=== PATIENT | female | born 1975 | race Caucasian/White ===

== ENCOUNTER → 2020-04-29 15:23 | Outpatient (CLI) | payer BC, OTHER, SELFPAY ==
--- NOTE | ~2020-04-29 | MM_ITS ---
EXAMINATION: MM screening [facility] BI w macey HISTORY: Screening mammogram TECHNIQUE: Craniocaudal and mediolateral oblique 3-D tomosynthesis images were obtained and synthetic 2-D images were generated. CAD analysis was submitted and interpreted. COMPARISON: 04/25/2019, 04/22/2018, 04/20/2017 BREAST PARENCHYMAL COMPOSITION: The breasts are heterogeneously dense, which may obscure small masses . FINDINGS: There is no evidence of suspicious mass, calcification, or architectural distortion to sugg est malignancy in either breast. There has been no suspicious interval change. IMPRESSION: 1. No mammographic evidence of malignancy. 2. Recommend routine screening mammography in one year. BI-RADS Category 1: Negative Reviewed, dictated and finalized at location A.
== END ==
PROVIDERS: Visit Provider Obstetrics & Gynecology
DX: Z12.31 Encounter for screening mammogram for malignant neoplasm of breast (principal)
CPT/HCPCS: 77063; 77067

== ENCOUNTER 2020-11-20 23:29 | Emergency (ER) | payer BC, OTHER, SELFPAY ==
--- NOTE | ~2020-11-20 | CT_ITS ---
EXAMINATION: CT abdomen pelvis w con DATE: 11/21/2020 00:44 INDICATION: Right lower quadrant abdominal pain. TECHNIQUE: Computed tomography (CT) of the abdomen and pelvis was performed with 100 mL Omnipaque 350 intravenous contrast. Automated exposure control and iterative reconstruction technique were employe d. The dose-length product was 875.18 mGy-cm. COMPARISON: None. FINDINGS: The visualized portions of the lung bases demonstrate mild atelectasis. No pleural effusion . The heart size is normal. No pericardial effusion. There is a 5 mm cyst in the liver. The gallbladd er, spleen, pancreas, adrenal glands, and kidneys are normal. There are no dilated loops of bowel. Th e appendix is normal. There is an umbilical hernia containing fat. There are no pathologically enlarg ed lymph nodes. There is no free intraperitoneal fluid. There is dextroscoliosis and mild spondylosis of thoracolumbar spine. IMPRESSION: 1. Umbilical hernia containing fat. Reviewed, dictated and finalized at location A.
[2020-11-20 23:45] VITALS: BP 152/79; PULSE 75; RESP 18; TEMP 37.1; O2SAT 100
[2020-11-21 00:14] LABS: Basophils Percent Auto 0.3 % (0.2-1.2); Eosinophils Absolute Auto 0.1 K/mm3 (0-0.3); Eosinophils Percent Auto 0.8 % (0-4.4); Hematocrit 42.6 % (37.0-47.0); Hemoglobin 13.4 g/dL (12.0-15.0); Immature Granulocyte Absolute 0.05 K/mm3 (0.00-0.031); Immature Granulocyte Percent A 0.6 % (0-0.5); Lymphocytes Absolute Auto 2.46 K/mm3 (0.9-3.2); Lymphocytes Percent Auto 27.3 % (18.3-44.2); Mean Corpuscular HGB Conc 31.5 g/dl (32-36); Mean Corpuscular Hemoglobin 28.8 pg (26-34); Mean Corpuscular Volume 91.4 fl (80-100); Mean Platelet Volume 10.8 fl (7.4-10.4); Monocytes Absolute Auto 0.7 K/mm3 (0.1-0.6); Monocytes Percent Auto 7.9 % (2.6-8.5); Neutrophils Absolute Auto 5.7 K/mm3 (1.3-6.7); Neutrophils Percent Auto 63.1 % (45.5-73.1); Platelet Count Result 228 k/mm3 (150-375); Red Blood Count 4.66 M/mm3 (4.2-5.4); Red Cell Distribution Width 12.7 % (11.5-14.5)
[2020-11-21] MEDS: SODIUM CHLORIDE 0.9% IV 1,000 ML 999 ML IV CONT (00:18)
[2020-11-21] MEDS: ONDANSETRON INJ 4 MG/2 ML VIAL IV PUSH (00:20)
[2020-11-21 00:28] LABS: Alanine Aminotransferase 12 U/L (4-35); Albumin Level 4.5 g/dL (3.5-5.1); Alkaline Phosphatase 61 U/L (38-126); Anion Gap 6 mmol/L (8-16); Aspartate Amino Transferase 18 U/L (14-36); Bilirubin,Total 0.1 mg/dL (0.2-1.3); Blood Urea Nitrogen 18 mg/dL (7-17); Calcium 8.9 mg/dL (8.4-10.2); Carbon Dioxide 27 mmol/L (22-30); Chloride 105 mmol/L (98-107); Estimated CRCL calculation 59 ml/min; Estimated Glomerular Filt Rate 53; Glucose 107 mg/dL (65-105); Lipase 66 U/L (23-300); Sodium 138 mmol/L (137-145)
--- NOTE | 2020-11-21 00:34 | ED.ABDPAIN ---
HPI - Abdominal Pain General Chief Complaint: Abdominal Pain Stated Complaint: low abd pain Time Seen by Provider: 11/20/20 23:45 Source: patient Mode of arrival: ambulatory Limitations: no limitations History of Present Illness HPI narrative: Patient is a four 5-year-old female complaining of right lower quadrant pain, 6 out of 10, sharp, nonradiating accompanied by nausea started tonight. Patient denies any chest pain, shortness of breath, vomiting, diarrhea, fever, chills or urinary symptoms. Related Data Home Medications Medication Instructions Recorded Confirmed oxcarbazepine 300 mg tablet 300 mg PO BID 10/20/19 Allergies Allergy/AdvReac Type Severity Reaction Status Date / Time propoxyphene Allergy Mild Anxiety Verified 10/20/19 11:47 carbamazepine Allergy Unknown Unknown Verified 10/20/19 11:47 topiramate Allergy Unknown Hives Verified 10/20/19 11:47 Review of Systems Review of Systems: All systems reviewed & are unremarkable except as noted in HPI and below Constitutional: Constitutional: Denies body ache(s), Denies chills, Denies excessive sweating, Denies fatigue, Denies fever(s), Denies headache(s), Denies lethargy, Denies malaise, Denies weakness and Denies weight loss Eyes: Eyes: Denies blurry vision, Denies change in vision and Denies loss of vision ENT: Denies dizziness, Denies ear discharge, Denies headache(s), Denies lip swelling, Denies epistaxis, Denies nasal congestion, Denies neck pain, Denies throat swelling and Denies tongue swelling Cardiovascular: Cardiovascular: Denies chest pain, Denies chest pain at rest, Denies chest pain with activity, Denies diaphoresis, Denies rapid heart rate, Denies edema, Denies irregular heart rhythm, Denies lightheadedness, Denies palpitations, Denies dyspnea and Denies dyspnea on exertion Respiratory: Respiratory: Denies chest congestion, Denies cough, Denies hemoptysis, Denies dyspnea and Denies dyspnea on exertion Gastrointestinal: Gastrointestinal: Denies melena, Denies hematochezia, Denies diarrhea, Denies vomiting and Denies hematemesis Musculoskeletal: Musculoskeletal: Denies abnormal gait, Denies deformity, Denies joint swelling, Denies limited range of motion, Denies neck pain and Denies numbness Neurologic: Denies Abnormal speech present, Denies abnormal gait, Denies confusion, Denies dizziness, Denies headache(s), Denies focal weakness, Denies loss of vision, Denies numbness, Denies Other visual disturbances, Denies Sensory deficit (Neuro) and Denies weakness Psychiatric: Psychiatric: Denies confusion, Denies depression, Denies auditory hallucinations, Denies homicidal ideation and Denies suicidal ideation Endocrine: Endocrine: Denies cold intolerance, Denies excessive sweating, Denies fatigue, Denies heat intolerance and Denies palpitations Hematologic/Lymphatic: Hematologic/Lymphatic: Denies easy bleeding and Denies easy bruising Allergic/Immunologic: Allergic/Immunologic: Denies lip swelling, Denies throat swelling and Denies tongue swelling PMFSH Past Medical History Medical History (Updated 11/21/20 @ 01:[address] MD) Brain tumor History of seizure Surgical History Surgical History (Updated 04/19/20 @ 07:39 by Chantel Rod [facility]) H/O brain surgery removal of brain tumor History of partial hysterectomy Family History Family History (Updated 04/19/20 @ 07:40 by Chantel Rod [facility]) Sibling Patient's brother is Mother Heart disease Hypertension Father Diabetes mellitus Grandparent Alzheimer disease Social History Social History (Updated 04/19/20 @ 07:40 by Chantel Rod [facility]) Smoking status: Never smoker Second hand tobacco smoke exposure: No Alcohol intake: current Exam Const: General: cooperative, healthy appearing, comfortable, no acute distress, well developed, alert and awake; No confusion Orientation/consciousness: oriented to person, oriented to place, oriented to
[2020-11-21 01:00] VITALS: BP 131/74; PULSE 64; RESP 16; O2SAT 98
[2020-11-21] MEDS: KETOROLAC 30 MG/ML VIAL (*BKC) IV PUSH (01:33)
[2020-11-21 01:55] LABS: Add Urine Microscopic? NO; Appearance Urine Clear (Clear); Bilirubin Urine Negative (Negative); Blood Urine Negative (Negative); Color Urine Yellow (Yellow); Glucose Urine UA Negative (Negative); Ketones Urine Negative (Negative); Leukocyte Esterase Ur Negative LEU/UL (Negative); Nitrate Urine Negative (Negative); Protein Urine Negative (Negative); Urobilinogen Urine Negative mg/dL (<2.0)
[2020-11-21 01:58] LABS: Specific Grav Ur 1.047 (1.001-1.035)
[2020-11-21 02:00] VITALS: BP 116/60; PULSE 64; RESP 16; O2SAT 97
== END 2020-11-21 02:30 | disposition home or self-care (01) ==
PROVIDERS: Emergency Provider Emergency Medicine; PCP Internal Medicine
DX: R10.31 Right lower quadrant pain (principal); G40.909 Epilepsy, unspecified, not intractable, without status epilepticus
CPT/HCPCS: 36415; 74177; 80053; 81003; 83690; 85025; 96361; 96374; 96375; 99284; J1885; J2405; J7030; Q9967

== ENCOUNTER → 2021-05-08 14:34 | Outpatient (CLI) | payer BC, OTHER, SELFPAY ==
--- NOTE | ~2021-05-08 | MM_ITS ---
EXAMINATION: MM screening [facility] BI w macey HISTORY: Screening TECHNIQUE: Craniocaudal and mediolateral oblique 3-D tomosynthesis images were obtained and synthetic 2-D images were generated. CAD analysis was submitted and interpreted. COMPARISON: No prior mammogram is available for comparison at this institution. BREAST PARENCHYMAL COMPOSITION: The breasts are heterogeneously dense, which may obscure small masses . FINDINGS: There are developing bilateral breast asymmetries in the lateral aspect of both breasts on CC views. There are no suspicious calcifications. No discrete mass. IMPRESSION: 1. Developing bilateral breast asymmetries. 2. Additional mammographic views and possible breast ultrasound are recommended. BI-RADS Category 0: Incomplete: Needs additional imaging evaluation. Reviewed, dictated and finalized at location A. IMPRESSION: 1. Developing bilateral breast asymmetries. 2. Additional mammographic views and possible breast ultrasound are recommended . BI-RADS Category 0: Incomplete: Needs additional imaging evaluation.
== END ==
PROVIDERS: PCP Internal Medicine; Visit Provider Student in an Organized Health Care Education/Training Program
DX: Z12.31 Encounter for screening mammogram for malignant neoplasm of breast (principal); R92.8 Other abnormal and inconclusive findings on diagnostic imaging of breast
CPT/HCPCS: 77063; 77067

== ENCOUNTER → 2021-06-05 08:36 | Outpatient (CLI) | payer BC, OTHER, SELFPAY ==
--- NOTE | ~2021-06-05 | MMUS_ITS ---
EXAMINATION: MM diagnostic [facility] BI w macey, US breast BI complete HISTORY: Developing bilateral breast asymmetries reported on 05/08/2021 screening mammogram TECHNIQUE: Additional 3-D tomosynthesis images of both breasts were performed and synthetic 2-D image s were generated. CAD analysis was submitted and interpreted. High resolution bilateral complete [facility] ultrasound including all 4 quadrants and subareolar areas was performed. COMPARISON: 05/08/2021 bilateral screening mammogram FINDINGS: MAMMOGRAPHIC FINDINGS: No suspicious reproducible mass no architectural distortion is evident. Heterogeneously dense stroma of both breasts may obscure masses. Bilateral complete breast ultrasound examination was performed. ULTRASOUND: No suspicious solid lesion or shadowing of either breast is detected. Right breast: 1:00 6 cm from nipple: 3.6 x 3.2 x 4.9 mm circumscribed parallel sonolucency consistent with cyst 2:00 3 cm from nipple: 3.1 x 3.6 x 3.7 mm sonolucency, consistent with small cyst 9:00 4 cm from nipple: Parallel circumscribed 4.6 x 2.2 x 2.7 mm sonolucency, likely a small cyst 11:00 2 cm from nipple: Parallel circumscribed hypoechoic 4.5 x 1.7 x 3.8 mm lesion without internal vascularity or posterior shadowing, likely benign Left breast: 4:00 1 cm from nipple: Parallel circumscribed 1.9 x 4.9 x 4.7 mm sonolucency, likely a small cyst IMPRESSION: 1. No mammographic evidence of malignancy 2. Routine mammographic screening is recommended BI-RADS Category 2: Benign finding(s). Reviewed, dictated and finalized at location A. TRIMMER IMPRESSION: 1. No mammographic evidence of malignancy 2. Routine mammographic screening is recommended BI-RADS Category 2: Benign finding(s).
== END ==
PROVIDERS: PCP Internal Medicine; Visit Provider Obstetrics & Gynecology
DX: R92.8 Other abnormal and inconclusive findings on diagnostic imaging of breast (principal)
CPT/HCPCS: 76641; 77062; 77066; G0279

== ENCOUNTER 2021-06-13 01:10 | Day surgery (SDC) | payer BC, OTHER, SELFPAY ==
[2021-06-05 14:38] VITALS: BMI 30.6
[2021-06-13 06:24] VITALS: BMI 30.4
[2021-06-13] MEDS: LACTATED RINGERS 1,000 ML 150 ML IV CONT (06:36)
[2021-06-13] MEDS: SIMETHICONE ORAL SUSPENSION 20 MG/0.3 ML 30 ML BOTTLE 0.6 ML IRRIGATION (07:35)
[2021-06-13 07:42] VITALS: BP 110/69; PULSE 77; RESP 17; O2SAT 100
--- NOTE | 2021-06-13 07:42 | WPDGICN ---
Assessment and Plan Assessment and plan (1) Screening for colon cancer: Code(s): Z12.11 - Encounter for screening for malignant neoplasm of colon Status: Acute Assessment and Plan: Patient presents for neoplasia screening. Appears to be at average risk for colon polyp. Further recommendations will be given after endoscopy. (2) History of seizure: Code(s): Z87.898 - Personal history of other specified conditions Status: Acute Assessment and Plan: Patient has a history of seizure after previous brain surgery for a tumor. Currently well controlled and stable. GI Consult Note Consult date/time: 06/13/21 07:42 HPI: Naty Hodges is a 45 year old female Presents for screening colonoscopy. She reports that her current weight appetite and bowel movements are normal. Patient denies abdominal pain. She has had no bleeding. Family history is noncontributory. Past medical history significant for brain surgery for brain tumor and has had a seizure in the past. Review of Systems Review of Systems: All systems reviewed & are unremarkable except as noted in HPI and below PMFSH Past Medical History Medical History (Updated 04/21/21 @ 16:28 by NAVIN Hayes) Brain tumor History of seizure Surgical History Surgical History H/O brain surgery removal of brain tumor History of partial hysterectomy Family History Family History Sibling Patient's brother is Mother Heart disease Hypertension Father Diabetes mellitus Grandparent Alzheimer disease Social History Social History Smoking status: Never smoker Second hand tobacco smoke exposure: No Alcohol intake: current Alcohol use details: rarely Substance use: never Substance use type: does not use Living arrangements: with family Meds Home Medications and Allergies Home Medications Medication Instructions Recorded Confirmed Type oxcarbazepine 300 mg tablet 300 mg PO BID 10/20/19 06/05/21 History cholecalciferol (vitamin D3) 1,250 1,250 mcg PO WEEKLY #8 cap 01/23/21 06/05/21 Rx mcg (50,000 unit) capsule Adults Multivitamin 2 tab-cap PO DAILY 06/05/21 06/05/21 History cyanocobalamin (vitamin B-12) 1,000 mcg PO DAILY 06/05/21 06/05/21 History [Vitamin B-12] Allergies Allergy/AdvReac Type Severity Reaction Status Date / Time propoxyphene Allergy Mild Anxiety Verified 06/13/21 06:22 carbamazepine Allergy Unknown Unknown Verified 06/13/21 06:22 topiramate Allergy Unknown Hives Verified 06/13/21 06:22 Exam Narrative: Physical exam reveals patient be alert. Vital signs stable. HEENT exam is unremarkable. Patient is anicteric. Lungs are clear to auscultation and percussion. Heart is without murmur or extra sounds. Abdominal exam bowel sounds are present soft nontender with no organomegaly. Digital external rectal exam is normal.
[2021-06-13 07:52] VITALS: BP 110/69; PULSE 60; RESP 15; O2SAT 100
[2021-06-13 08:02] VITALS: BP 130/75; PULSE 58; RESP 16; O2SAT 100
== END 2021-06-13 08:15 | disposition home or self-care (01) ==
PROVIDERS: PCP Internal Medicine; Visit Provider Internal Medicine Gastroenterology
PROC: 0DJD8ZZ Inspection of Lower Intestinal Tract, Via Natural or Artificial Opening Endoscopic (ICD-10-PCS; CPT 45378; principal; 2021-06-13 07:30)
DX: Z12.11 Encounter for screening for malignant neoplasm of colon (principal); K63.5 Polyp of colon; Z87.898 Personal history of other specified conditions
CPT/HCPCS: 45385; 88305; J2704; J7120

== ENCOUNTER → 2022-07-11 09:50 | Outpatient (CLI) | payer BC, OTHER, SELFPAY ==
--- NOTE | ~2022-07-11 | US_ITS ---
US thyroid INDICATION: Follow-up thyroid nodule TECHNIQUE: Real-time sonographic images of the thyroid gland were obtained. COMPARISON: Ultrasound dated 04/10/2017 FINDINGS: The right thyroid lobe measures 4.7 x 1.2 x 1.7 cm. The left thyroid lobe measures 4.6 x 1 .4 x 1.4 cm. There is normal echotexture and echogenicity throughout the thyroid gland. There is a st able circumscribed oval hypoechoic mass which is solid, wider than tall, smoothly marginated with pun ctate echogenic foci, TR 5. Given the lack of interval change, this is likely benign. Normal vascular flow is present. IMPRESSION: 1. Stable likely benign left thyroid mass measuring up to 12 mm, TR 5. Recommend follow-up ultrasoun d in 12 months. Reviewed, dictated and finalized at location A. E FORMER IMPRESSION: 1. Stable likely benign left thyroid mass measuring up to 12 mm, TR 5. Recomme nd follow-up ultrasound in 12 months.
== END ==
PROVIDERS: PCP Internal Medicine; Visit Provider Clinical Nurse Specialist
DX: E04.1 Nontoxic single thyroid nodule (principal)
CPT/HCPCS: 76536

== ENCOUNTER 2022-08-05 18:33 | Emergency (ER) | payer BC, OTHER, SELFPAY ==
[2022-08-05 18:38] VITALS: BP 149/79; PULSE 73; RESP 16; TEMP 36; O2SAT 99
--- NOTE | 2022-08-05 18:44 | ED.SKABFB ---
HPI - Skin/Abscess/Foreign Bdy General Chief complaint: Skin/Abscess/Foreign Body Stated complaint: Rash Time Seen by Provider: 08/05/22 18:44 Source: patient Mode of arrival: ambulatory Limitations: no limitations History of Present Illness HPI narrative: 47 yo F presents with c/o painful rash to L forehead extending into scalp that started approx. 4 days ago. Getting progressively worse. Saw her eye doctor 3 days ago for L eye itching but did not mention rash. No pain to eye. Was told exam normal and to use pataday. No worsening or change to eye symptoms. All systems reviewed and negative except as noted above. Related Data Home Medications Medication Instructions Recorded Confirmed cyanocobalamin (vitamin B-12) 1,000 mcg PO DAILY 06/05/21 03/15/22 1,000 mcg tablet (Vitamin B-12) oxcarbazepine 300 mg tablet 450 mg PO BID 03/12/22 03/15/22 Allergies Allergy/AdvReac Type Severity Reaction Status Date / Time propoxyphene Allergy Mild Anxiety Verified 06/13/21 06:22 carbamazepine Allergy Unknown Unknown Verified 06/13/21 06:22 topiramate Allergy Unknown Hives Verified 06/13/21 06:22 Review of Systems Review of Systems: CONSTITUTIONAL: Denies fever, chills, or sweats. EYES: Denies visual changes, redness, or discharge. ENT: Denies rhinorrhea, congestion, sore throat, or otalgia. CARDIOVASCULAR: Denies chest pain, palpitations, or edema. RESPIRATORY: Denies cough or dyspnea. GASTROINTESTINAL: Denies abdominal pain, nausea, vomiting, or diarrhea. GENITOURINARY: Denies dysuria or hematuria. SKIN: reports painful rash to left forehead. MUSCULOSKELETAL: Denies back pain, joint pain, or myalgia. NEUROLOGIC: Denies headache, numbness, or weakness. PSYCHIATRIC: Denies anxiety or depression. All other systems reviewed are negative, except as documented in HPI. [facility] Past Medical History Medical History Brain tumor History of seizure Surgical History Surgical History H/O brain surgery removal of brain tumor History of partial hysterectomy Family History Family History Sibling Patient's brother is Mother Heart disease Hypertension Father Diabetes mellitus Grandparent Alzheimer disease Social History Social History Smoking status: Never smoker Second hand tobacco smoke exposure: No Alcohol intake: current Alcohol use details: rarely Substance use: never Substance use type: does not use Living arrangements: with family Comments At time of signature, agree with nursing past medical, surgical, social and family history. There is no relevant family history pertinent to the presenting complaint. Exam Narrative: GENERAL: This is a well-nourished, well-developed patient, in no apparent distress. HEAD: normocephalic, atraumatic. EYES: PERRL. Sclera clear/white. Vision is grossly intact. Topical anesthetic was instilled with good anesthesia using 1gtt of opth anesthetic agent (tetracaine). Fluorescein stain of the L eye was performed without uptake of dye. No epithelial defect was noted. NO FB, ulcer or dendritic lesions. Upper lid was everted and no FB or lesions were noted. Normal saline irrigation eye solution was performed and the patient tolerated the procedure well, no adverse reaction or complications. EARS: External ears normal NOSE: External nose normal NECK: Neck supple, non-tender without lymphadenopathy, masses or thyromegaly. CARDIOVASCULAR: Regular rate and rhythm without murmurs, gallops, or rubs. RESPIRATORY: Clear to auscultation. Breath sounds equal bilaterally. No wheezes, rales, or rhonchi. SKIN: warm, Dry, intact, good texture and turgor. erythematous vesicles with surrounding swelling to L side of forehead extending to L temporal area
== END 2022-08-05 19:05 | disposition home or self-care (01) ==
PROVIDERS: Emergency Provider Nurse Practitioner Family; PCP Internal Medicine
DX: B02.9 Zoster without complications (principal); G40.909 Epilepsy, unspecified, not intractable, without status epilepticus
CPT/HCPCS: 99213; A9270; G0463

== ENCOUNTER → 2022-08-22 07:41 | Outpatient (CLI) | payer BC, OTHER, SELFPAY ==
--- NOTE | ~2022-08-22 | MM_ITS ---
EXAMINATION: MM screening [facility] BI w macey HISTORY: Screening mammogram TECHNIQUE: Craniocaudal and mediolateral oblique 3-D tomosynthesis images were obtained and synthetic 2-D images were generated. CAD analysis was submitted and interpreted. COMPARISON: 06/2000 diagnostic bilateral mammogram and complete bilateral breast ultrasound exam ination BREAST PARENCHYMAL COMPOSITION: The breasts are heterogeneously dense, which may obscure small masses . FINDINGS: There is no evidence of suspicious mass, calcification, or architectural distortion to sugg est malignancy in either breast. There has been no suspicious interval change. IMPRESSION: 1. No mammographic evidence of malignancy. 2. Recommend routine screening mammography in one year. BI-RADS Category 1: Negative Reviewed, dictated and finalized at location A. ENT INTAKE COORDINATOR
== END ==
PROVIDERS: PCP Internal Medicine; Visit Provider Obstetrics & Gynecology
DX: Z12.31 Encounter for screening mammogram for malignant neoplasm of breast (principal)
CPT/HCPCS: 77063; 77067

== ENCOUNTER 2022-12-02 18:33 | Emergency (ER) | payer BC, OTHER, SELFPAY ==
--- NOTE | ~2022-12-02 | XR_ITS ---
EXAM: XR toe 1st LT min 2V DATE: 12/02/2022 18:59 HISTORY: DROPPED 10 POUND WEIGHT ON TOE . COMPARISON: None available. FINDINGS: Decreased mineralization. Subtle, minimally comminuted fracture of the distal left first p halanx. No lytic or blastic lesion. Joint spaces and physes are maintained. No erosion or periosteal change. Soft tissues within normal limits. IMPRESSION: Nondisplaced, minimally comminuted fracture of the distal left first phalanx. Reviewed, dictated and finalized at location K. IMPRESSION: Nondisplaced, minimally comminuted fracture of the distal left firs t phalanx.
[2022-12-02 18:49] VITALS: BP 148/71; PULSE 65; RESP 16; TEMP 36.6; O2SAT 99
--- NOTE | 2022-12-02 19:45 | ED.LOWEXIN ---
HPI - Extremity Injury (Lower) General Chief Complaint: Extremity Injury, Lower Stated Complaint: injury left toe Time Seen by Provider: 12/02/22 19:45 Source: patient Mode of arrival: ambulatory Limitations: no limitations History of Present Illness HPI Narrative: 47-year-old female presented for complaint of pain and swelling to the left great toe after dropping a 10 lb weight on the toe yesterday morning. States she is able to move the toes and has normal sensation. denies decreased range of motion, numbness, tingling, or weakness of the extremity. She denies damage to the toenail. Has not taken anything for pain. Related Data Home Medications Medication Instructions Recorded Confirmed cyanocobalamin (vitamin B-12) 1,000 mcg PO DAILY 06/05/21 03/15/22 1,000 mcg tablet (Vitamin B-12) oxcarbazepine 300 mg tablet 450 mg PO BID 03/12/22 03/15/22 Allergies Allergy/AdvReac Type Severity Reaction Status Date / Time propoxyphene Allergy Mild Anxiety Verified 12/02/22 18:55 carbamazepine Allergy Unknown Unknown Verified 12/02/22 18:55 topiramate Allergy Unknown Hives Verified 12/02/22 18:55 Review of Systems Review of Systems: CONSTITUTIONAL: Denies body aches, fever, chills EYES: Denies visual changes ENT: Denies rhinorrhea, congestion CARDIOVASCULAR: Denies chest pain, palpitations, or edema. RESPIRATORY: Denies cough or dyspnea. GASTROINTESTINAL: Denies abdominal pain, nausea, vomiting, or diarrhea. SKIN: Denies rash, itching, or wounds. MUSCULOSKELETAL: Per HPI NEUROLOGIC: Denies headache, numbness, tingling, or weakness. PSYCH: Denies depression or anxiety. All systems reviewed & are unremarkable except as noted in HPI and below PMFSH Past Medical History Medical History Brain tumor History of seizure Surgical History Surgical History H/O brain surgery removal of brain tumor History of partial hysterectomy Family History Family History Sibling Patient's brother is Mother Heart disease Hypertension Father Diabetes mellitus Grandparent Alzheimer disease Social History Social History Smoking status: Never smoker Second hand tobacco smoke exposure: No Alcohol intake: current Alcohol use details: rarely Substance use: never Substance use type: does not use Living arrangements: with family Comments At time of signature, I have reviewed and agree with nursing past medical, surgical, social and family history unless otherwise noted. Please see nursing chart for further information. There is no relevant family history pertinent to the presenting complaint Exam Narrative: GENERAL: Well-appearing, in no acute distress. CHEST: Speaks in full sentences. No respiratory distress. HEART: Regular rate and rhythm. Normal and equal peripheral pulses. EXTREMITIES: Left foot 1st toe with moderate bruising and swelling into the MTP joint, Tender to DIP. full range of motion and sensation intact. Left foot has normal strength and sensation, normal range of motion. No open wounds, skin tenting, or obvious deformity; alignment normal, pulse palpable and equal bilaterally, skin warm, dry, pink. Capillary refill less than 3 seconds. SKIN: Warm, dry NEURO: Alert and oriented x3. PSYCH: Normal mood and affect Course Course Emergency Course: Patient is aware of diagnosis, understands and agrees to treatment plan. Anticipatory guidance given. Patient agrees to follow-up as directed and is aware of reasons to seek care at the emergency department. Portions of this record may have been created with voice recognition software Level of Care: Express Care Visit Vital Signs Vital signs: Vital Signs Temperature 98 F 12/02/22 18:4
== END 2022-12-02 20:10 | disposition home or self-care (01) ==
PROVIDERS: Emergency Provider Nurse Practitioner Family; PCP Internal Medicine
DX: S92.425A Nondisplaced fracture of distal phalanx of left great toe, initial encounter for closed fracture (principal); W20.8XXA Other cause of strike by thrown, projected or falling object, initial encounter; G40.909 Epilepsy, unspecified, not intractable, without status epilepticus
CPT/HCPCS: 73660; 99214; G0463

== ENCOUNTER 2023-11-05 13:12 | Outpatient (CLI) | payer BC, OTHER, SELFPAY ==
--- NOTE | ~2023-11-05 | MMUS_ITS ---
EXAMINATION: MM diagnostic [facility] BI w macey, US breast BI complete HISTORY: Fibrocystic changes TECHNIQUE: ML, MLO and CC 3-D tomosynthesis images of both breasts were performed and synthetic 2-D i mages were generated. CAD analysis was submitted and interpreted. High resolution bilateral complete breast ultrasound examination including all 4 quadrants and subareolar area of each breast was perfor med. COMPARISON: August 22, 2022 bilateral screening mammogram June 05, 2021 diagnostic bilateral mammogram and bilateral complete breast ultrasound examination May 08, 2021 bilateral screening mammogram BREAST PARENCHYMAL COMPOSITION: The breasts are heterogeneously dense, which may obscure small masses . FINDINGS: MAMMOGRAPHIC FINDINGS: No suspicious mass or architectural distortion, malignant calcification, skin thickening or retractio n or significant new or developing density is detected. ULTRASOUND: Right breast: 1:00 5 cm from nipple: 3.7 x 5.4 mm sonolucency without internal vascularity, likely a small cyst 0136 hours from nipple: 2 x 3.2 x 4.8 mm probable cyst Left breast: 3:00 4 cm from nipple: 1.7 x 3.9 x 4.1 mm cyst 11:00 near nipple: Fibula 5 x 6.3 x 6.8 mm cyst IMPRESSION: 1. Benign findings 2. Routine annual mammographic screening is recommended BI-RADS Category 2: Benign finding(s). Reviewed, dictated and finalized at location A. IMPRESSION: 1. Benign findings 2. Routine annual mammographic screening is recommended BI-RADS Category 2: Benign finding(s).
== END 2023-11-05 13:13 | disposition home or self-care (01) ==
LOC: ANHIMG 13:14
PROVIDERS: PCP Internal Medicine; Visit Provider Obstetrics & Gynecology
DX: N60.19 Diffuse cystic mastopathy of unspecified breast (principal)
CPT/HCPCS: 76641; 77062; 77066; G0279

== ENCOUNTER 2024-08-25 00:15 | Day surgery (SDC) | payer BC, OTHER, SELFPAY ==
[2024-08-09 13:33] VITALS: BMI 35.2
--- OUTSIDE RECORDS SUMMARY | 2024-08-25 00:19 | XMS_ITS | Clinical Summary ---
Author Organization [facility] Address [address] [place] [address] Care Team Providers Care Cost Reduction Engineer Name Role Phone Cinthia Hernandez DO Primary Care Provider [phone]- [phone] Source Comments [facility],non-owned Affiliates and Associated Physician Practices is amultiple site organization consisting of ambulatory clinics and hospital sitesin [place], [place], [place] and [place]. This disclosure is being madepursuant to the Care Everywhere program and may not contain all information available regarding this patient. Last updated 18.[facility] Allergies Active Allergy Reactions Criticality Noted Date Comments Carbamazepine Rash Medium 11/11/2017 Propoxyphene N-Apap Other 02/16/2018 Panic attack Topiramate Dizziness Low 11/11/2017 Medications * Be aware that medications may not be up to date on this document. Alwaysverify current medications with the patient. Medication Sig Dispensed Refills Start Date End Date Status OXcarbazepine (TRILEPTAL) 300 MG tablet Take 300 mg by mouth 2 times daily Active clobetasol (TEMOVATE) 0.05 % ointmentIndications:Gra nuloma annulare Apply to feet and arms twice daily. 30 days supply. 60 g 3 02/16/2018 Active Active Problems Problem Noted Date Diagnosed Date Granuloma annulare 06/01/2018 Lentigines 06/01/2018 Other seborrheic keratosis 06/01/2018 Multiple benign melanocytic nevi of upper and lower extremities and trunk 06/01/2018 Family History Medical History Relation Name Comments Asthma Neg Hx CVA Neg Hx Cancer - Breast Neg Hx Cancer - Other Neg Hx Cancer - Skin, Melanoma Neg Hx Cancer - Skin, Non Melanoma Neg Hx Eczema Neg Hx Hemophilia Neg Hx Psoriasis Neg Hx Social History Tobacco Use Types Packs/Day Years Used Date Smoking Tobacco: Never Smokeless Tobacco: Never Alcohol Use Standard Drinks/Week Comments Yes 0 (1 standard drink = 0.6 oz pur e alcohol) rarely Sex and Gender Information Value Date Recorded Sex Assigned at Not on file Gender Identity Not on file Sexual Orientation Not on file Plan of Treatment Health Maintenance Due Date Last Done Comments COLOGUARD (AGES 45-75) - COL ON CA SCREENING 1974 COLON MONITORING 1974 COLONOSCOPY - COLON CA SCREENING 1974 CT COLONOGRAPHY - COLON CA SCREENING 1974 Colorectal Cancer Screening 1974 FIT - COLON CA SCREENING 1974 FLEX SIG - COLON CA SCREENING 1974 LIPID TESTING 1974 MAMMOGRAM 1974 PAP SMEAR 1974 HIV SCREENING 1989 HEPATITIS C SCREENING 07/13/1992 DTAP/TDAP/TD VACCINES (1 - Tdap) 1993 HEPATITIS B VACCINE (1 of 3 - 19+ 3-dose series) 1993 COVID-19 VACCINE ( - 2023-2 5 season) 2024 INFLUENZA VACCINE (#1) 2024 DEPRESSION SCREENING 07/05/2024 PNEUMOCOCCAL VACCINE 50+ (1 of 1 - PCV) 2024 ZOSTER VACCINE (1 of 2) 2024 HIB VACCINE Aged Out No longer eligi ble based on patient's age to complete this topic HPV VACCINE Aged Out No longer eligi ble based on patient's age to complete this topic MENINGOCOCCAL (Group B) VACCINE Aged Out No longer eligible based on patient's age to complete this topic MENINGOCOCCAL VACCINE Aged Out No annalise gaurav eligible based on patient's age to complete this topic PNEUMOCOCCAL VACCINE Aged Out No long er eligible based on patient's age to complete this topic Care Teams Cost Reduction Engineer Relationship Specialty Start Date End Date Cinthia Hernandez DO PCP - General 02/16/18
--- OUTSIDE RECORDS SUMMARY | 2024-08-25 00:19 | XMS_ITS | Referral Summary ---
Author Organization [facility] Address [address] [place] [address] Care Team Providers Care Platinum And Palladium Kettle Tender Name Role Phone Cinthia Hernandez DO Primary Care Provider [phone]- [phone] Source Comments [facility],non-owned Affiliates and Associated Physician Practices is amultiple site organization consisting of ambulatory clinics and hospital sitesin [place], [place], [place] and [place]. This disclosure is being madepursuant to the Care Everywhere program and may not contain all information available regarding this patient. Last updated 18.[facility] Allergies Active Allergy Reactions Criticality Noted Date [...] upper and lower extremities and trunk 06/01/2018 Social History Tobacco Use Types Packs/Day Years Used Date Smoking Tobacco: Never Smokeless Tobacco: Never Alcohol Use Standard Drinks/Week Comments Yes 0 (1 standard drink = 0.6 oz pur e alcohol) rarely Sex and Gender Information Value Date Recorded Sex Assigned at Not on file Gender Identity Not on file Sexual Orientation Not on file Plan of Treatment Not on file Care Teams Platinum And Palladium Kettle Tender Relationship Specialty Start Date End Date Cinthia Hernandez DO PCP - General 02/16/18
--- OUTSIDE RECORDS SUMMARY | 2024-08-25 00:19 | XMS_ITS | Referral Summary ---
Author Organization [facility] [address] Address [address] [place] [address] Care Team Providers Care Administrative And Program Specialist Name Role Phone Cinthia Hernandez DO Primary Care Provider [phone]- [phone] Zane Cruz MD Unavailable Allergies Active Allergy Reactions Criticality Noted Date Comments Carbamazepine Rash Medium 11/11/2017 Topiramate Dizziness Low 11/11/2017 Medications cholecalciferol (VITAMIN D-3) 5,000 unit tablet 02/12/2021 Active cyanocobalamin (Vitamin B-12) 1,000 mcg sublingual tablet Take 1 tablet (1,000 mcg total) by mouth daily Active OXcarbazepine (TRILEPTAL) 300 mg tabletIndicatio ns:Seizures (HCC) Take 1.5 tablets (450 mg total) by mouth 2 (two) times a day 270 tablet 3 12/27/2023 5 Active Active Problems Problem Noted Date Diagnosed Date Seizures 05/13/2021 Granuloma annulare 06/01/2018 Lentigines 06/01/2018 Multiple benign melanocytic nevi of upper and lower extremities and trunk 06/01/2018 Other seborrheic keratosis 06/01/2018 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 on file Not on file Not on file Last Filed Vital Signs Vital Sign Reading Time Taken Comments Blood Pressure 153/82 03/21/2024 8:51 AM CDT Pulse 66 03/21/2024 8:51 AM CDT Temperature 36 C (96.8 F) 05/21/2022 1:44 PM MARINE ENGINEERING CONSULTANT Respiratory Rate - - Oxygen Saturation 98% 05/21/2022 1:44 PM MARINE ENGINEERING CONSULTANT Inhaled Oxygen Concentration - - Weight 88.5 kg (195 lb) 03/21/2024 8:51 AM CDT Height 162.6 cm (5' 4 ) 03/21/2024 8:51 AM CDT Body Mass Index 33.47 03/21/2024 8:51 AM CDT Plan of Treatment [place] [address] [facility] CHOICE PLUS [facility] HMO/PPO Address: [address] [place] [id number] [employer] [facility] [place] [id number] [facility] CHOICE PLUS [facility] H[facility]/PPO Address: [address] [place] [id number] [employer] [facility] CHOICE PLUS [facility] H[facility]/PPO Address: [address] [address] [place] [address] [employer] Care Teams Administrative And Program Specialist Relationship Specialty Start Date End Date Cinthia Hernandez DO PCP - General Internal Medicine 07/09/20 Zane Cruz MD [address] [place] [address] Referring Physician Neurology 07/09/20
--- OUTSIDE RECORDS SUMMARY | 2024-08-25 00:19 | XMS_ITS | Clinical Summary ---
Author Organization [facility] [address] Address [address] [place] [address] Care Team Providers Care Chassis Inspector Name Role Phone Cinthia Hernandez DO Primary Care Provider [phone]- [phone] Zane Cruz MD Unavailable Allergies Active Allergy [...] Immunization Administration Dates Next Due Tdap 04/18/2019 Surgical History Surgery Date Site/Laterality Comments CRANIOTOMY PARTIAL HYSTERECTOMY Medical History Medical History Date Comments Brain tumor (benign) (HCC) Shingles Foot fracture, right Hallux Family History Medical History Relation Name Comments Epilepsy Other Relation Name Status Comments Other Other Maternal cousin Social History Tobacco Use Types Packs/Day Years [...] on file Legal Sex Female 2:46 AM TALENT DEVELOPMENT ANALYST Gender Identity Not on file Sexual Orientation Not on file 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 Not on file Not on file Obstetrics History Last Filed Vital Signs Vital Sign Reading Time Taken Comments Blood Pressure 153/82 03/21/2024 8:51 AM CDT Pulse 66 03/21/2024 8:51 AM CDT Temperature 36 C (96.8 F) 05/21/2022 1:44 PM TALENT DEVELOPMENT ANALYST Respiratory Rate - - Oxygen Saturation 98% 05/21/2022 1:44 PM TALENT DEVELOPMENT ANALYST Inhaled Oxygen Concentration - - Weight 88.5 kg (195 lb) 03/21/2024 8:51 AM CDT Height 162.6 cm (5' 4 ) 03/21/2024 8:51 AM CDT Body Mass Index 33.47 03/21/2024 8:51 AM CDT Plan of Treatment Health Maintenance Due Date Last Done Comments Breast Cancer Screening-Mammogram 1974 Cervical Cancer Screening 1974 Colon Cancer Screening-Colonoscopy 1974 Depression Screening 1974 Hepatitis C Screening 1974 Hepatitis B Screening 1992 Regular Well Visit/Exam 18-64 1992 Influenza Vaccine (#1) 2024 Zoster Vaccine (1 of 2) 2024 DTaP/Tdap/Td Vaccine (2 - Td or Tdap) 04/18/2029 04/18/2019 Pneumococcal vaccine <65 Aged Out No longer eligible based on patient's age to complete this topic Insurance [employer] [place] [facility] CHOICE PLUS [facility] H[facility]/PPO Address: [address] [address] [place] [address] [employer] [facility] CHOICE PLUS [facility] H[facility]/PPO Address: [address] [address] [place] [address] [employer] [facility] CHOICE PLUS [facility] H[facility]/PPO Address: [address] [address] [place] [address] [employer] Member Subscriber Plan / Payer (Ef fective 2016-Present) Name:Naty Acosta Relation to Subscriber:Self Name:Naty Acosta Payer ID:[id number] (NAIC) Type:picsell Address: [address] [place] [id number] Care Teams Chassis Inspector Relationship Specialty Start Date End Date Cinthia Hernandez DO PCP - General Internal Medicine 07/09/20 Zane Cruz MD [address] [address] Referring Physician Neurology 07/09/20
--- OUTSIDE RECORDS SUMMARY | 2024-08-25 00:19 | XMS_ITS | Patient Health Summary ---
Author Organization [facility] Address [address] [place] [address] Care Team Providers Care Brazing Furnace Operator Name Role Phone JenniferurszulaCinthia DO Primary Care Provider [phone]- [phone] [facility],non-owned Affiliates and Associated Physician Practices is amultiple site organization consisting of ambulatory clinics and hospital sitesin [place], [place], [place] and [place]. This disclosure is being madepursuant to the Care Everywhere program and may not contain all information available regarding this patient. Last updated 18.[facility] Allergies * Carbamazepine(Rash) -Medium Criticality * Propoxyphene N-Apap(Other) * Topiramate(Dizziness) -Low Criticality Medications * Be aware that medications may not be up to date on this document. Alwaysverify current medications with the patient. * OXcarbazepine (TRILEPTAL) 300 MG tablet Take 300 mg by mouth 2 times daily * clobetasol (TEMOVATE) 0.05 % ointment(Started 02/16/2018) Apply to feet and arms twice daily. 30 days supply. 3 refills remaining Active Problems Problem Noted Date Diagnosed Date [...] on file Sexual Orientation Not on file Care Teams Brazing Furnace Operator Relationship Specialty Start Date End Date Cinthia Hernandez DO PCP - General 02/16/18
[2024-08-25 06:48] VITALS: BP 202/94; PULSE 108; RESP 20; TEMP 35.9; O2SAT 97; BMI 34.5
[2024-08-25] MEDS: LACTATED RINGERS 1,000 ML 150 ML IV CONT (07:03)
--- NOTE | 2024-08-25 07:05 | P.PNAN_ITS ---
Anes - Initial Pre Proc Eval Procedure: Operation Date: 08/25/24 08:00 Proposed Procedures p Screening Colonoscopy - Jourdan Nowak MD Date/Time: 08/25/24 07:05 Surgeon: Jourdan Nowak MD Pre Op Diagnosis: personal hx colon polyps Patient Data Age: 49 Gender: F Height: 1.63 m Weight: 91.4 kg Last Vital Signs Temp 96.6 F L 08/25/24 06:48 Pulse 108 H 08/25/24 06:48 Resp 20 08/25/24 06:48 BP 202/94 H 08/25/24 06:48 Pulse Ox 97 08/25/24 06:48 O2 Del Method Room Air 08/25/24 06:48 Allergies Allergy/AdvReac Type Severity Reaction Status Date / Time propoxyphene Allergy Mild Anxiety Verified 08/25/24 06:46 carbamazepine Allergy Unknown Unknown Verified 08/25/24 06:46 topiramate Allergy Unknown Hives Verified 08/25/24 06:46 Home Medications ?Medication ?Instructions ?Recorded ?Confirmed ?Type cholecalciferol (vitamin D3) 1,250 1,250 mcg PO WEEKLY #8 caps 01/23/21 08/25/24 Rx mcg (50,000 unit) capsule cyanocobalamin (vitamin B-12) 1,000 mcg PO DAILY 06/05/21 08/25/24 History 1,000 mcg tablet (Vitamin B-12) oxcarbazepine 300 mg tablet 450 mg PO BID 03/12/22 08/25/24 History cholecalciferol (vitamin D3) 1,250 1,250 mcg PO WEEKLY #8 tabs 12/14/23 08/25/24 Rx mcg (50,000 unit) tablet Patient hx anesthesia problems: none Family hx anesthesia problems: none Results Review: All pre-operative results and documents have been reviewed as part of the pre- operative evaluation. [facility] Past Medical History Medical History Brain tumor History of seizure Surgical History Surgical History History of partial hysterectomy H/O brain surgery removal of brain tumor Family History Family History Sibling Patient's brother is Mother Heart disease Hypertension Father Diabetes mellitus Grandparent Alzheimer disease Social History Social History Smoking status: Never smoker Second hand tobacco smoke exposure: No Alcohol intake: current Alcohol use details: rarely Substance use: never Substance use type: does not use Living arrangements: with family Spiritual care concerns: No Anes - Eval Final PreProcedure Day of Procedure 08/25/24 07:05 Patient weight: obese Lungs: normal air movement Airway: Mallampati scale class II Neurological: alert and oriented Last oral intake: >/= 8 hours ASA classification: III Emergent: no Anesthetic plan: proceed Anesthesia type and monitoring: general GIVS and standard monitoring Results Review: All pre-operative results and documents have been reviewed as part of the pre- operative evaluation. Hx of brain tumor, R temporal lobe glioma, 2000, on antiseizure meds since. Will recheck bps BP after antiemetics this am. Informed Consent: The patient's anesthetic plan and its attendant risks and benefits were discussed with the patient/family/POA. Questions were solicited and answers provided to the satisfaction of the patient/family/POA.
[2024-08-25 07:08] VITALS: BP 142/68; PULSE 70
[2024-08-25] MEDS: FAMOTIDINE 20 MG/2 ML VIAL IV PUSH (07:13)
[2024-08-25] MEDS: ONDANSETRON INJ 4 MG/2 ML VIAL IV PUSH (07:16)
--- NOTE | 2024-08-25 07:52 | PM.HPGS ---
History of Present Illness History of Present Illness Consent: Risks, benefits, and alternatives have been discussed and questions answered. Patient agrees to proceed with procedure. Chief complaint: personal hx colon polyps Narrative: Naty Hodges is a 49 year old female with colon polyp in 2020 Review of Systems Review of Systems: All systems reviewed & are unremarkable except as noted in HPI and below PMFSH Past Medical History Medical History (Updated 08/25/24 @ 07:52 by Jourdan Nowak MD) Colon polyp Brain tumor History of seizure Surgical History Surgical History History of partial hysterectomy H/O brain surgery removal of brain tumor Family History Family History Sibling Patient's brother is Mother Heart disease Hypertension Father Diabetes mellitus Grandparent Alzheimer disease Social History Social History Smoking status: Never smoker Second hand tobacco smoke exposure: No Alcohol intake: current Alcohol use details: rarely Substance use: never Substance use type: does not use Living arrangements: with family Spiritual care concerns: No Meds Home Medications and Allergies Home Medications ?Medication ?Instructions ?Recorded ?Confirmed ?Type cholecalciferol (vitamin D3) 1,250 1,250 mcg PO WEEKLY #8 caps 01/23/21 08/25/24 Rx mcg (50,000 unit) capsule cyanocobalamin (vitamin B-12) 1,000 mcg PO DAILY 06/05/21 08/25/24 History 1,000 mcg tablet (Vitamin B-12) oxcarbazepine 300 mg tablet 450 mg PO BID 03/12/22 08/25/24 History cholecalciferol (vitamin D3) 1,250 1,250 mcg PO WEEKLY #8 tabs 12/14/23 08/25/24 Rx mcg (50,000 unit) tablet Allergies Allergy/AdvReac Type Severity Reaction Status Date / Time propoxyphene Allergy Mild Anxiety Verified 08/25/24 06:46 carbamazepine Allergy Unknown Unknown Verified 08/25/24 06:46 topiramate Allergy Unknown Hives Verified 08/25/24 06:46 Vital Signs Vital Signs - 24 hr 08/25/24 06:48 08/25/24 07:08 Temperature 96.6 F L Pulse Rate 108 H 70 Respiratory Rate 20 Blood Pressure 202/94 H 142/68 H Pulse Oximetry 97 Oxygen Delivery Room Air Exam Const: General: comfortable and no acute distress HENMT: Face/Nose/Sinus: Normal nares present Eyes: General: appearance normal, both eyes and all related structures Neck: Neck: no JVD Resp: Auscultation: clear to auscultation bilaterally Cardio: Rate: regular rate Rhythm: regular rhythm GI: Inspection: non-distended GI Palp: Yes Soft to palpation Skin: General skin exam: normal color Neuro: General: gait normal Speech: normal speech Extrem: General: normal to inspection Psych: Mental Status: mental status grossly normal Assessment and Plan Assessment and plan (1) Colon polyp: Code(s): K63.5 - Polyp of colon Status: Acute Assessment and Plan: colonoscopy
[2024-08-25 08:10] VITALS: BP 116/71; PULSE 77; RESP 12; O2SAT 97
[2024-08-25 08:20] VITALS: BP 124/66; PULSE 61; RESP 17; O2SAT 100
[2024-08-25 08:30] VITALS: BP 124/68; PULSE 62; RESP 18; O2SAT 100
== END 2024-08-25 08:52 | disposition home or self-care (01) ==
PROVIDERS: PCP Internal Medicine; Referring Provider Internal Medicine Gastroenterology; Visit Provider Internal Medicine Gastroenterology
PROC: 0DJD8ZZ Inspection of Lower Intestinal Tract, Via Natural or Artificial Opening Endoscopic (ICD-10-PCS; CPT 45378; principal; 2024-08-25 08:00)
DX: Z12.11 Encounter for screening for malignant neoplasm of colon (principal); K57.30 Diverticulosis of large intestine without perforation or abscess without bleeding; Z86.0100 Personal history of colon polyps, unspecified
CPT/HCPCS: 45378; J2003; J2405; J2704; J7120

== ENCOUNTER 2025-01-31 08:04 | Outpatient (CLI) | payer BC, OTHER, SELFPAY ==
--- NOTE | ~2025-01-31 | US_ITS ---
US thyroid INDICATION: Nontoxic thyroid nodule TECHNIQUE: Real-time sonographic images of the thyroid gland were obtained. COMPARISON: Ultrasound dated 07/11/2022 FINDINGS: The right thyroid lobe measures 4.7 x 1.5 x 1.8 cm. The left thyroid lobe measures 4.7 x 1 .3 x 1.8 cm. There are small hypoechoic right thyroid masses measuring 4 mm or less, likely benign. I n the left lobe there is an oval hypoechoic solid wider than tall smoothly marginated mass without ec hogenic foci measuring 1.4 x 1.1 x 0.9 cm, TR 4.. Normal vascular flow is present. IMPRESSION: 1. Increased size of left thyroid mass now measuring 1.4 cm greatest dimension, TR 4. Ultrasound-jacinda ded fine-needle aspiration biopsy. Reviewed, dictated and finalized at location A. IMPRESSION: 1. Increased size of left thyroid mass now measuring 1.4 cm greatest dimension , TR 4. Ultrasound-guided fine-needle aspiration biopsy.
== END 2025-01-31 08:05 | disposition home or self-care (01) ==
LOC: MICIMG 08:04
PROVIDERS: PCP Internal Medicine; Visit Provider Clinical Nurse Specialist
DX: E04.1 Nontoxic single thyroid nodule (principal)
CPT/HCPCS: 76536